=== PATIENT | male | born 1980 | race Caucasian/White ===

== ENCOUNTER 2017-04-12 08:17 | Emergency (ER) | payer MEDICAID, OTHER ==
--- NOTE | 2017-04-12 08:43 | ED ---
General Adult HPI - General Chief complaint: Needlestick/Exposure Stated complaint: [facility] Needle stick Time Seen by Provider: 04/12/17 08:32 Source: patient, RN notes reviewed Mode of arrival: ambulatory Limitations: no limitations - History of Present Illness Initial comments: Patient 36-year-old male who presents here to the emergency room for a chief complaint of a needlestick. Patient works as a nurse up on the psych floor was given the patient Sadie accidentally poked his right index finger with this needle. States the bleeding right away to clean the area. He states his immunizations are up-to-date. Patient states unknown history of the source patient. He denies any other complaints or symptoms at this time. Patient denies any recent fever, chills, shortness of breath, chest pain, back pain, abdominal pain, nausea or vomiting, numbness or tingling, dysuria or hematuria, constipation or diarrhea, headaches or visual changes, or any other complaints. - Related Data Home Medications Medication Instructions Recorded Confirmed carBAMazepine [carBAMazepine ER] 300 mg PO QAM 04/12/17 04/12/17 Allergies Allergy/AdvReac Type Severity Reaction Status Date / Time codeine AdvReac Dyspnea Verified 04/12/17 08:47 Review of Systems ROS Statement: Those systems with pertinent positive or pertinent negative responses have been documented in the HPI. ROS Other: All systems not noted in ROS Statement are negative. Past Medical History Past Medical History: No Reported History History of Any Multi-Drug Resistant Organisms: None Reported Past Surgical History: Orthopedic Surgery Additional Past Surgical History / Comment(s): finger Past Psychological History: Anxiety Smoking Status: Never smoker Past Alcohol Use History: Rare Past Drug Use History: None Reported General Exam - General Exam Comments Initial Comments: General: The patient is awake and alert, in no distress, and does not appear acutely ill. Neck: The neck is supple, there is no tenderness or JVD. Cardiovascular: There is a regular rate and rhythm. No murmur, rub or gallop is appreciated. Respiratory: Lungs are clear to auscultation, respirations are non-labored, breath sounds are equal. No wheezes, stridor, rales, or rhonchi. Musculoskeletal: Full range motion. Sensation intact. Pulses equal bilaterally 2+. Strength 5/5. Neurological: A&O x 3. CN II-XII intact, There are no obvious motor or sensory deficits. Coordination appears grossly intact. Speech is normal. Skin: Skin is warm and dry and no rashes or lesions are noted. Psychiatric: Normal mood and affect. Limitations: no limitations Course Vital Signs 04/12/17 08:29 Temperature 98.1 F Pulse Rate 79 Respiratory 18 Rate Blood Pressure 132/75 O2 Sat by Pulse 97 Oximetry Medical Decision Making - Medical Decision Making Rapid HIV testing done on source patient is negative. Results were updated to the patient. At this time he is advised continued follow-up with employee health for further testing. Disposition Clinical Impression: Needle stick injury Disposition: HOME SELF-CARE Condition: Good Instructions: Needle Stick Injuries (ED) Additional Instructions: Rapid HIV test on the source patient was negative. Please continue to follow- up with employee health as directed. Referrals: None,Stated [Primary Care Provider] - 1-2 days Time of Disposition: 09:40
[2017-04-12 10:05] VITALS: BP 119/79; PULSE 93; RESP 20; TEMP 97.8
== END 2017-04-12 10:06 | disposition home or self-care (01) ==
LOC: EC 08:17
DX: S69.91XA Unspecified injury of right wrist, hand and finger(s), initial encounter (principal); Z79.899 Other long term (current) drug therapy; Z88.5 Allergy status to narcotic agent; W46.0XXA Contact with hypodermic needle, initial encounter; Y92.238 Other place in hospital as the place of occurrence of the external cause; Y93.89 Activity, other specified
CPT/HCPCS: 99282

== ENCOUNTER 2019-03-19 11:52 | Emergency (ER) | payer MEDICAID, OTHER ==
[2019-03-19 11:58] VITALS: TEMP 98.2
[2019-03-19] MEDS ORDERED: PROPARACAINE 0.5% OPHTH DROPS 15 ML BTL RIGHT EYE STA (11:59)
[2019-03-19] MEDS ORDERED: DIPH,PERTUS(ACELL)TETVAC-LF 0.5 ML VIAL IM ONE (12:06)
--- NOTE | 2019-03-19 12:13 | ED ---
General Adult HPI - General Chief complaint: Eye Problems Stated complaint: [facility]-eye injury Time Seen by Provider: 03/19/19 11:58 Source: patient, RN notes reviewed Mode of arrival: ambulatory Limitations: no limitations - History of Present Illness Initial comments: 38-year-old male presents to the emergency department for a chief complaint of right-sided periorbital pain x 1 hour. 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 Patient is denying any significant pain of the actual orbit but does state that is burning or he was scratched in the skin under the right eye. Denies any visual changes. Patient is not up-to-date on tetanus.Patient has no other complaints at this time including shortness of breath, chest pain, abdominal pain, nausea or vomiting, headache, or visual changes. - Related Data Home Medications Medication Instructions Recorded Confirmed diphenhydrAMINE [Benadryl] 25 mg PO HS PRN 03/19/19 03/19/19 Allergies Allergy/AdvReac Type Severity Reaction Status Date / Time codeine AdvReac Dyspnea Verified 03/19/19 12:07 Review of Systems ROS Statement: Those systems with pertinent positive or pertinent negative responses have been documented in the HPI. ROS Other: All systems not noted in ROS Statement are negative. Past Medical History Past Medical History: No Reported History History of Any Multi-Drug Resistant Organisms: None Reported Past Surgical History: Orthopedic Surgery Additional Past Surgical History / Comment(s): finger Past Psychological History: Anxiety Smoking Status: Never smoker Past Alcohol Use History: Rare Past Drug Use History: None Reported General Exam Limitations: no limitations General appearance: alert, in no apparent distress Head exam: Present: atraumatic, normocephalic, normal inspection Eye exam: Present: normal appearance, PERRL, EOMI, other (mutiple scratches noted below the right eye. Eye was stained with fluorosceine stain, no corneal abrasions present, no Rene sign.). Absent: scleral icterus, conjunctival injection, periorbital swelling ENT exam: Present: normal exam, normal oropharynx, mucous membranes moist, TM's normal bilaterally. Absent: normal external ear exam (small scratch noted just anterior to R eye) Neck exam: Present: normal inspection, full ROM. Absent: tenderness, meningismus, lymphadenopathy Respiratory exam: Present: normal lung sounds bilaterally. Absent: respiratory distress, wheezes, rales, rhonchi, stridor Cardiovascular Exam: Present: regular rate, normal rhythm, normal heart sounds. Absent: systolic murmur, diastolic murmur, rubs, gallop, clicks Neurological exam: Present: alert, oriented X3, CN II-XII intact Psychiatric exam: Present: normal affect, normal mood Course Vital Signs 03/19/19 11:55 Temperature 98.2 F Pulse Rate 115 H Respiratory 18 Rate Blood Pressure 132/78 O2 Sat by Pulse 96 Oximetry Medical Decision Making - Medical Decision Making 38-year-old male presents to the emergency department for a chief complaint of right periorbital scratches. 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 Patient does have abrasions noted below the right eye. He is denying any pain in the globe whatsoever. Denies any pain with moving the eye. Denies any visual changes. Visual acuity is 20/25 in the right eye. There are multiple abrasions noted below the right eye. The eye was stained with fluorescein stain, no corneal abrasions, no Rene sign. Scratches were cleaned with soap and water. Bacitracin was applied. Discussed monitoring for signs of infection and returning here if these occur. Discussed following up with primary care. Tetanus was also updated. Disposition Clinical Impression: Abrasion of cheek Disposition: HOME SELF-CARE Condition: Good Instructions (If sedation given, give patient instructions): Abrasion (ED) Additional Instructions: Apply bacitracin to affected area for the next 1-2 days. Then leave area open to air. Monitor for signs of infection such as spreading or streaking redness, drainage, swelling, or difficulty or pain with moving the eye. Return if you notice these or any other worsening symptoms. Is patient prescribed a controlled substance at d/c from ED?: No Referrals: Marilu Gregorio MD [STAFF PHYSICIAN] - 1-2 days Time of Disposition: 12:34
[2019-03-19 13:13] VITALS: BP 122/75; PULSE 63; RESP 16
== END 2019-03-19 12:51 | disposition home or self-care (01) ==
LOC: EC 11:52
DX: S00.81XA Abrasion of other part of head, initial encounter (principal); Z23 Encounter for immunization; Z88.5 Allergy status to narcotic agent; Y04.0XXA Assault by unarmed brawl or fight, initial encounter; Y93.72 Activity, wrestling; Y92.69 Other specified industrial and construction area as the place of occurrence of the external cause; Y99.0 Civilian activity done for income or pay
CPT/HCPCS: 90471; 90715; 99283